=== PATIENT | female | born 1940 | race Asian ===

== ENCOUNTER 2016-10-22 00:12 | Inpatient (IN) | payer OTHER, BC ==
[~2016-10-22] VITALS: Ht 152.4 cm; Wt 71.6 kg
[~2016-10-22 00:12] MED LIST: ALEVE220 MG PO; AMLODIPINE BESYL5 MG PO; ASPIR 8181 M1 PO; ASPIR-TRIN325 M1 PO; CARVEDILOL12.5 MG PO; CLEOCIN300 MG PO; COREG25 MG PO; ECOTRIN325 MG PO; Ecotrin PO; KLOR-CON M1010 MEQ PO; LANTUS 3 M100 UNITS1 SC; LASIX20 MG PO; LISINOPRIL5 MG PO; Lantus 3 ml Solostar SC; Lasix PO; Micro-K,K-Tab,K-Dur, PO; NOVOLIN,HU100 UNITS1 SC; NOVOLOG 10100 UNITS/ SC; NOVOLOG PE100 UNITS/ SC; Nitrostat,NitroQuick SL; NovoLOG, HumaLOG SC; PLAVIX75 MG PO; Plavix PO; SIMVASTATIN80 MG PO; STOOL SOFTENER100 MG PO; Zestril,Prinivil PO; Zocor PO
[2016-10-22 00:53] LABS: BASOPHIL COUNT 0.1 K/uL (0-0.1); EOSINOPHIL (%) 0.5 % (0-5); EOSINOPHIL COUNT 0.1 K/uL (0-0.3); HEMATOCRIT 36.4 % (36.0-46.0); IMMATURE GRANULOCYTE (%) 0.3 % (0.0-0.7); IMMATURE GRANULOCYTE COUNT 0.5 K/uL; LYMPHOCYTE COUNT 1.6 K/uL (1.0-2.8); MCH 27.1 PG (29.0-34.0); MCHC 34.9 G/DL (30.0-36.0); MCV 77.6 FL (83-99); MEAN PLAT.VOLUME 12.8 uM^3 (9.5-12.4); MONOCYTE (%) 7.9 % (3-12); MONOCYTE COUNT 1.2 K/uL (0-0.8); NEUTROPHIL (%) 80.2 % (45-76); NEUTROPHIL COUNT 11.9 K/uL (1.8-6.4); PLATELET COUNT 219 K/uL (156-360); RBC DIS.WIDTH-CV 15.1 % (11.8-14.6); RBC DIS.WIDTH-SD 41.1 % (39-53); RED BLOOD COUNT 4.69 M/uL (3.80-5.20); WHITE BLOOD COUNT 14.9 K/uL (4.1-10.2)
[2016-10-22 01:02] LABS: CHLORIDE 103 mEq/L (99-109); POTASSIUM 4.2 mEq/L (3.7-5.4); PROTHROMBIN TIME 10.6 (9.2-11.2); PTT 27.3 (25-32); SODIUM 139 mEq/L (136-147)
[2016-10-22 01:04] LABS: GLUCOSE 105 mg/dL (70-99)
[2016-10-22 01:06] LABS: ANION GAP 10 MEQ/L (2-14); TOTAL BILIRUBIN 0.4 mg/dL (0.0-1.0)
[2016-10-22 01:08] LABS: ALKALINE PHOSPHATASE 72 IU/L (3-129); GFR ESTIMATE (CALCULATED) > 59 mL/min/
[2016-10-22 01:09] LABS: UREA NITROGEN (BUN) 20 mg/dL (9-23)
[2016-10-22 01:11] LABS: LIPASE 13 U/L (1.0-51.0)
[2016-10-22 01:13] LABS: TROP-I INTERPRETATION NEGATIVE; TROPONIN-I 0.04 ng/mL (0.0-0.30)
[2016-10-22 01:29] LABS: INFLUENZA A VIRAL ANTIGEN NEGATIVE; INFLUENZA B VIRAL ANTIGEN NEGATIVE
[2016-10-22 02:56] LABS: ADD MIUA? YES; BILIRUBIN NEGATIVE; BLOOD TRACE; COLOR YELLOW ((YELLOW)); GLUCOSE (STRIP) NEGATIVE; KETONES NEGATIVE; LEUKOCYTES NEGATIVE; NITRITE NEGATIVE; PROTEIN (STRIP) 30; SPECIFIC GRAVITY 1.043 (1.000-1.030); UROBILINOGEN 0.2 MG/DL (0.2-1.0)
[2016-10-22 03:26] LABS: RED BLOOD CELLS NONE SEEN /HPF (0-5); WHITE BLOOD CELLS RARE /HPF (0-5)
[2016-10-22 03:27] LABS: BACTERIA RARE; CASTS NONE SEEN /LPF; CRYSTALS NONE SEEN; MUCUS NONE SEEN; UCUL ADDED? NO
[2016-10-22 03:31] LABS: EPITHELIAL CELLS 1+
[2016-10-22] MEDS ORDERED: SIMVASTATIN40 MG PO (10:36)
[2016-10-22] MEDS ORDERED: GABAPENTIN300 MG PO (10:37)
[2016-10-22] MEDS ORDERED: SYSTANE BALANCE10 ML BOTH EYES (10:37)
[2016-10-22] MEDS ORDERED: INSULIN PUMP SCCONT (10:38)
[2016-10-22 11:51] VITALS: BP 149/64
[2016-10-22 16:00] VITALS: BP 130/66
[2016-10-22 19:25] VITALS: BP 118/58
[2016-10-22 22:45] VITALS: BP 144/63
[2016-10-23 07:17] VITALS: BP 149/57
[2016-10-23 07:31] LABS: ALKALINE PHOSPHATASE 53 IU/L (3-129); ANION GAP 12 MEQ/L (2-14); CHLORIDE 102 MEQ/L (99-109); GFR ESTIMATE (CALCULATED) > 59 mL/min/; POTASSIUM 4.3 MEQ/L (3.7-5.4); SAMPLE HEMOLYSIS CHECK 0; SAMPLE ICTERIC CHECK 0; SAMPLE LIPEMIA CHECK 0; SODIUM 137 MEQ/L (136-147); TOTAL BILIRUBIN 0.4 MG/DL (0.0-1.0); UREA NITROGEN (BUN) 13 mg/dL (9-23)
[2016-10-23 07:33] LABS: GLUCOSE 282 mg/dL (70-99)
[2016-10-23 07:40] LABS: HEMATOCRIT 29.2 % (36.0-46.0); MCH 26.6 PG (29.0-34.0); MCHC 33.2 G/DL (30.0-36.0); MCV 80.2 FL (83-99); RBC DIS.WIDTH-CV 15.5 % (11.8-14.6); RBC DIS.WIDTH-SD 44.9 % (39-53); WHITE BLOOD COUNT 10.9 K/uL (4.1-10.2)
[2016-10-23 07:41] LABS: RED BLOOD COUNT 3.64 M/uL (3.80-5.20)
[2016-10-23 08:13] LABS: MEAN PLAT.VOLUME 13.2 uM^3 (9.5-12.4); PLATELET COUNT 190 K/uL (156-360)
[2016-10-23 15:30] VITALS: BP 138/59
[2016-10-23 23:26] VITALS: BP 135/59
[2016-10-24 08:20] VITALS: BP 130/52
[2016-10-24 09:45] LABS: HEMATOCRIT 30.9 % (36.0-46.0); MCH 26.4 PG (29.0-34.0); MCHC 33.3 G/DL (30.0-36.0); MCV 79.2 FL (83-99); RBC DIS.WIDTH-CV 15.1 % (11.8-14.6); RBC DIS.WIDTH-SD 43.3 % (39-53); WHITE BLOOD COUNT 9.1 K/uL (4.1-10.2)
[2016-10-24 09:56] LABS: MEAN PLAT.VOLUME 13.1 uM^3 (9.5-12.4); PLATELET COUNT 206 K/uL (156-360)
[2016-10-24 10:09] LABS: ANION GAP 12 MEQ/L (2-14); CHLORIDE 104 MEQ/L (99-109); GFR ESTIMATE (CALCULATED) > 59 mL/min/; GLUCOSE 221 mg/dL (70-99); IRON 79 MCG/DL (35-150); POTASSIUM 4.4 MEQ/L (3.7-5.4); SAMPLE HEMOLYSIS CHECK 0; SAMPLE ICTERIC CHECK 0; SAMPLE LIPEMIA CHECK 0; SODIUM 137 MEQ/L (136-147); UREA NITROGEN (BUN) 10 mg/dL (9-23)
[2016-10-24 10:21] LABS: FERRITIN 541 NG/ML (10-291)
[2016-10-24] MEDS ORDERED: CIPRO500 MG PO (14:24)
[2016-10-24] MEDS ORDERED: FLAGYL500 MG PO (14:24)
[2016-10-24] MEDS ORDERED: AMLODIPINE BESYL5 MG PO (14:24)
[2016-10-24] MEDS ORDERED: TRAMADOL HCL50 MG PO (15:59)
== END 2016-10-24 16:33 | disposition home or self-care (01) | DRG 392 ==
LOC: EME → EDBD 00:12 → EME 00:12 → EDOF 02:46 → 2EAST 02:46
PROVIDERS: Emergency Medicine; Internal Medicine
DX: K52.9 Noninfective gastroenteritis and colitis, unspecified (principal); E86.0 Dehydration; I10 Essential (primary) hypertension; E11.9 Type 2 diabetes mellitus without complications; I25.10 Atherosclerotic heart disease of native coronary artery without angina pectoris; Z95.5 Presence of coronary angioplasty implant and graft; Z91.013 Allergy to seafood; Z79.4 Long term (current) use of insulin; D72.829 Elevated white blood cell count, unspecified
CPT/HCPCS: 71020; 74177; 80048; 80053; 81003; 82607; 82728; 82746; 82948; 83540; 83605; 83690; 83880; 84466; 84484; 85025; 85027; 85610; 85730; 87040; 87493; 87502; 87506; 93005; 99281; 99284; J0692; J0744; J1650; J1815; J1956; J2405; J7050; S0030

== ENCOUNTER 2017-09-17 12:49 | Emergency (ER) | payer OTHER, BC ==
[~2017-09-17] VITALS: Ht 152.4 cm; Wt 70.2 kg
[~2017-09-17 12:49] MED LIST changes: +CIPRO500 MG PO; +FLAGYL500 MG PO; +GABAPENTIN300 MG PO; +INSULIN PUMP SCCONT; +SIMVASTATIN40 MG PO; +SYSTANE BALANCE10 ML BOTH EYES; +TRAMADOL HCL50 MG PO
[2017-09-17 14:25] LABS: HEMATOCRIT 36.5 % (36.0-46.0); HEMOGLOBIN 12.3 G/DL (11.9-15.5); MCH 26.9 PG (29.0-34.0); MCHC 33.7 G/DL (30.0-36.0); MCV 79.9 FL (83-99); PLATELET COUNT 271 K/uL (156-360); RBC DIS.WIDTH-CV 14.5 % (11.8-14.6); RBC DIS.WIDTH-SD 41.9 % (39-53); RED BLOOD COUNT 4.57 M/uL (3.80-5.20); WHITE BLOOD COUNT 11.8 K/uL (4.1-10.2)
[2017-09-17 14:34] LABS: CHLORIDE 99 mEq/L (99-109); POTASSIUM 4.9 mEq/L (3.7-5.4); SODIUM 135 mEq/L (136-147)
[2017-09-17 14:36] LABS: GLUCOSE 352 mg/dL (70-99)
[2017-09-17 14:39] LABS: CREATININE 0.9 mg/dL (0.6-1.3); GFR ESTIMATE (CALCULATED) > 59 mL/min/
[2017-09-17 14:40] LABS: UREA NITROGEN (BUN) 17 mg/dL (9-23)
[2017-09-17 14:45] LABS: TROP-I INTERPRETATION NEGATIVE; TROPONIN-I 0.13 ng/mL (0.0-0.30)
[2017-09-17 19:20] VITALS: BP 145/63
== END 2017-09-17 19:21 | disposition home or self-care (01) ==
LOC: EME 12:49
DX: E11.65 Type 2 diabetes mellitus with hyperglycemia (principal); R42 Dizziness and giddiness; K21.9 Gastro-esophageal reflux disease without esophagitis; I25.2 Old myocardial infarction; Z95.5 Presence of coronary angioplasty implant and graft; Z95.1 Presence of aortocoronary bypass graft; Z87.440 Personal history of urinary (tract) infections; Z96.41 Presence of insulin pump (external) (internal); Z79.82 Long term (current) use of aspirin; Z88.5 Allergy status to narcotic agent
CPT/HCPCS: 70450; 71020; 80048; 82948; 84484; 85027; 93005; 99281; 99284

== ENCOUNTER 2018-04-26 17:18 | Emergency (ER) | payer OTHER, BC ==
[~2018-04-26] VITALS: Ht 152.4 cm; Wt 69.4 kg
[2018-04-26 19:03] LABS: HEMATOCRIT 33.4 % (36.0-46.0); HEMOGLOBIN 11.3 G/DL (11.9-15.5); MCHC 33.8 G/DL (30.0-36.0); MCV 79.9 FL (83-99); PLATELET COUNT 198 K/uL (156-360); RBC DIS.WIDTH-CV 14.9 % (11.8-14.6); RBC DIS.WIDTH-SD 43.1 % (39-53); RED BLOOD COUNT 4.18 M/uL (3.80-5.20); WHITE BLOOD COUNT 9.3 K/uL (4.1-10.2)
[2018-04-26 19:09] LABS: INTER. NORMALIZED RATIO 1.1
[2018-04-26 19:11] LABS: PTT 28.3 SEC (25-37)
[2018-04-26 19:21] LABS: CHLORIDE 103 mEq/L (99-109); POTASSIUM 4.6 mEq/L (3.7-5.4)
[2018-04-26 19:26] LABS: CREATININE 0.9 mg/dL (0.6-1.3); GFR ESTIMATE (CALCULATED) > 59 mL/min/
[2018-04-26 19:27] LABS: UREA NITROGEN (BUN) 17 mg/dL (9-23)
[2018-04-26 19:39] VITALS: BP 132/78
[2018-04-26 19:44] LABS: GLUCOSE 491 mg/dL (70-99); SODIUM 134 mEq/L (136-147)
== END 2018-04-26 19:40 | disposition home or self-care (01) ==
LOC: EME 17:18
PROVIDERS: Nurse Practitioner Family
DX: L76.22 Postprocedural hemorrhage of skin and subcutaneous tissue following other procedure (principal); E11.65 Type 2 diabetes mellitus with hyperglycemia; Z79.4 Long term (current) use of insulin; Z79.02 Long term (current) use of antithrombotics/antiplatelets; I25.2 Old myocardial infarction; K21.9 Gastro-esophageal reflux disease without esophagitis; Z95.5 Presence of coronary angioplasty implant and graft; Z95.1 Presence of aortocoronary bypass graft; Z88.5 Allergy status to narcotic agent; Z91.013 Allergy to seafood
CPT/HCPCS: 80048; 85027; 85610; 85730; 99281; 99284